=== PATIENT | female | born 1930 | race Caucasian/White ===

== ENCOUNTER 2017-05-18 18:16 | Observation (INO) | payer MEDICARE ==
[~2017-05-18] VITALS: Ht 172.7 cm; Wt 61.0 kg
[~2017-05-18 18:16] MED LIST: ASP81TEC PO; ATEN25TA PO; C250T PO; CHOL2000 PO; DIAZ5TAB3 PO; FENO54TA PO; HCT25T PO; HYDR-3812 PO; IBUP-1779 PO; MULT-1029 PO; NITR0.3T6 SL; NITROFURANTOIN PO; OLME40TA12 PO; OMG1KC PO; SIMV40TA4 PO
[2017-05-18] MEDS ORDERED: fentaNYL INJECTION 100 MCG/2 ML AMP IVP STA (18:26)
[2017-05-18] MEDS ORDERED: ATENOLOL 50 MG (TENORMIN) TAB PO ONE ×2 (18:30→18:45)
[2017-05-18 18:44] LABS: BASOPHILS % (AUTO) 1 % (0-10); EOSINOPHILS # (AUTO) 0.3 10^3/uL (0.0-0.3); EOSINOPHILS % (AUTO) 4 % (0-10); LYMPHOCYTES # (AUTO) 2.7 X 10^3 (1.0-4.0); LYMPHOCYTES % (AUTO) 35 % (12-44); MEAN CORPUSCULAR HEMOGLOBIN 30 PG (25-34); MEAN CORPUSCULAR HGB CONC 33 G/DL (32-36); MEAN CORPUSCULAR VOLUME 91 FL (80-99); MEAN PLATELET VOLUME 9.2 FL (7.4-10.4); MONOCYTES # (AUTO) 0.7 X 10^3 (0.0-1.0); MONOCYTES % (AUTO) 9 % (0-12); NEUTROPHILS % (AUTO) 52 % (42-75); PLATELET COUNT 293 10^3/uL (130-400); RED BLOOD COUNT 4.37 10^6/uL (4.35-5.85); RED CELL DISTRIBUTION WIDTH 13.3 % (10.0-14.5); WHITE BLOOD COUNT 7.7 10^3/uL (4.3-11.0)
--- NOTE | 2017-05-18 18:47 | ED Fall/Injury ---
General Chief Complaint: Hip/Pelvic Problems Stated Complaint: R HIP PAIN Nursing Triage Note: PT HERE VIA EMS WITH C/O R HIP PAIN. PT REPORTS FALLING SEVERAL TIMES OVER THE PAST WEEK. PT REPORTS BENDING DOWN TO ADJUST HER TV ANTENNA AND HER HIP GIVING OUT CAUSING HER INCREASED PAIN. Source: patient Exam Limitations: no limitations History of Present Illness Time seen by provider: 18:16 Initial Comments 87-year-old female patient presents to the emergency department via EMS with complaints of right hip pain. Reports falling 2-3 times over the last couple of days. Initially states she has fallen several times over the last week. Denies hitting her head or loss of consciousness. Denies neck or back pain. Has had previous hip replacements bilaterally. Patient states she fell yesterday while she was trying to bend down and adjust her TV antenna. Reports right hip giving out and causing her increased pain. Patient states she did not take her atenolol today. Location Injury Occurred: home Injuries/Pain Location: lower extremity (rt hip) Context: other (rt hip "gave out".) Loss of Consciousness: no loss of consciousness Modifying Factors: Improves With Immobilization, Worse With Movement Allergies and Home Medications Allergies Coded Allergies: codeine (Verified Allergy, Unknown, 03/03/06) Home Medications Ascorbic Acid 250 Mg Tab, 500 MG PO DAILY, (Reported) Aspirin 81 Mg Tabec, 81 MG PO DAILY, (Reported) Cholecalciferol 2,000 Unit Capsule, 2,000 UNIT PO DAILY, (Reported) Fenofibrate 54 Mg Tablet, 54 MG PO DAILY, (Reported) Hydrochlorothiazide 25 Mg Tab, 25 MG PO DAILY, (Reported) Hydrocodone/Acetaminophen 1 Each Tablet, 0.5-1 EACH PO Q4H PRN for PAIN, #14 Ref 0 Prescribed by: AYLA ROWLAND on 09/02/15 1603 Ibuprofen 400 Mg Tablet, 400 MG PO Q6H PRN for PAIN, #20 Ref 0 Prescribed by: AYLA ROWLAND on 09/02/15 1603 Mu-Vits-Min Th/Lycopene/Lutein 1 Each Tablet, 1 EACH PO, (Reported) Nitroglycerin 0.3 Mg Tab.subl, 0.4 MG SL, (Reported) Olmesartan Medoxomil 40 Mg Tablet, 40 MG PO DAILY, (Reported) [place] 3 Polyunsat Fatty Acids 1,000 Mg Cap, 1,000 MG PO BID, (Reported) Simvastatin 40 Mg Tablet, 40 MG PO DAILY, (Reported) Constitutional: no symptoms reported Eyes: No Symptoms Reported Ears, Nose, Mouth, Throat: no symptoms reported Respiratory: No cough, No short of breath Cardiovascular: No chest pain, No palpitations, No syncope Gastrointestinal: No abdominal pain, No constipation, No diarrhea, No nausea, No vomiting Genitourinary: no symptoms reported Musculoskeletal: see HPI, No back pain, joint pain, No neck pain Skin: no symptoms reported Psychiatric/Neurological: Denies Headache, Denies Numbness, Denies Paresthesia , Denies Seizure, Denies Tingling, Denies Weakness All Other Systems Reviewed Negative Unless Noted: Yes (Negative excepted noted.) Past Palrihl-Gpfaor-Beyycc Hx Patient Social History Recent Foreign Travel: No Contact w/Someone Who Travel: No Recent Infectious Disease Expo: No Immunizations Up To Date Date of Pneumonia Vaccine: May 02, 2010 Date of Influenza Vaccine: Aug 16, 2015 Seasonal Allergies Seasonal Allergies: No Surgeries History of Surgeries: Yes Surgeries: Appendectomy, Bladder Surgery, Gallbladder, Joint Replacement, Orthopedic Respiratory History of Respiratory Disorde: No Cardiovascular History of Cardiac Disorders: Yes Cardiac Disorders: High Cholesterol, Hypertension, Peripheral Vascular Neurological History of Neurological Disord: No Reproductive System Hx Reproductive Disorders: No Sexually Transmitted Disease: No HIV/AIDS: No 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 Gastrointestinal History of Gastrointestinal Di: No Musculoskeletal History of Musculoskeletal Dis: No Endocrine History of Endocrine Disorders: No Cancer History of Cancer: No Psychosocial History of Psychiatric Problem: No Reviewed Nursing Assessment Reviewed/Agree w Nursing PMH: Yes Family Medical History Significant Family History: No Pertinent Family Hx Physical Exam Vital Signs Vital Sign - Last 12Hours 05/18/17 18:16 Temp 97.8 Pulse 97 Resp 18 B/P (MAP) 240/101 Pulse Ox 99 O2 Delivery Room Air Capillary Refill : Less Than 3 Seconds General Appearance: WD/WN, no apparent distress HEENT: PERRL/EOMI, normal ENT inspection, TMs normal, pharynx normal Neck: non-tender, full range of motion, supple, normal inspection Cardiovascular: normal peripheral pulses, regular rate, rhythm, no edema, no murmur Respiratory: chest non-tender, lungs clear, normal breath sounds, no respiratory distress, no accessory muscle use Peripheral Pulses: 2+ Dorsalis Pedis (R), 2+ Left Dors-Pedis (L), 2+ Radial Pulses (R), 2+ Radial Pulses (L) Gastrointestinal: normal bowel sounds, non tender, soft, no organomegaly, No distended Back: normal inspection, no vertebral tenderness Extremities: no pedal edema, normal capillary refill, pelvis stable, other (rt lateral and posterior hip TTP. RLE shortened without rotation or obvious deformity. decreased ROM noted. Left hip nontender. ) Neurologic/Psychiatric: parlor chaperone II-XII nml as tested, no motor/sensory deficits, alert, normal mood/affect Skin: normal color, warm/dry Priscilla Coma Score Best Eye Response: (4) Open Spontaneously Best Verbal Response: (5) Oriented Best Motor Response: (6) Obeys Commands Priscilla Total: 15 Progress/Results/Core Measures Results/Orders Lab Results Laboratory Tests Test 05/18/17 18:36 Range/Units White Blood Count 7.7 4.3-11.0 10^3/uL Red Blood Count 4.37 4.35-5.85 10^6/uL Hemoglobin 13.2 11.5-16.0 G/DL Hematocrit 40 35-52 % Mean Corpuscular Volume 91 80-99 FL Mean Corpuscular Hemoglobin 30 25-34 PG Mean Corpuscular Hemoglobin Concent 33 32-36 G/DL Red Cell Distribution Width 13.3 10.0-14.5 % Platelet Count 293 130-400 10^3/uL Mean Platelet Volume 9.2 7.4-10.4 FL Neutrophils (%) (Auto) 52 42-75 % Lymphocytes (%) (Auto) 35 12-44 % Monocytes (%) (Auto) 9 0-12 % Eosinophils (%) (Auto) 4 0-10 % Basophils (%) (Auto) 1 0-10 % Neutrophils # (Auto) 4.0 1.8-7.8 X 10^3 Lymphocytes # (Auto) 2.7 1.0-4.0 X 10^3 Monocytes # (Auto) 0.7 0.0-1.0 X 10^3 Eosinophils # (Auto) 0.3 0.0-0.3 10^3/uL Basophils # (Auto) 0.0 0.0-0.1 10^3/uL Sodium Level 141 135-145 MMOL/L Potassium Level 3.6 3.6-5.0 MMOL/L Chloride Level 106 98-107 MMOL/L Carbon Dioxide Level 23 21-32 MMOL/L Anion Gap 12 5-14 MMOL/L Blood Urea Nitrogen 18 7-18 MG/DL Creatinine 0.93 0.60-1.30 MG/DL Estimat Glomerular Filtration Rate 57 BUN/Creatinine Ratio 19 Glucose Level 114 H 70-105 MG/DL Calcium Level 9.5 8.5-10.1 MG/DL Total Bilirubin 0.4 0.1-1.0 MG/DL Aspartate Amino Transf (AST/SGOT) 18 5-34 U/L Alanine Aminotransferase (ALT/SGPT) 11 0-55 U/L Alkaline Phosphatase 45 40-136 U/L Total Protein 6.6 6.4-8.2 GM/DL Albumin 4.0 3.2-4.5 GM/DL My Orders Orders - AYLA ROWLAND PA Cbc With Automated Diff (05/18/17 18:26) Comprehensive Metabolic Panel (05/18/17 18:26) Saline Lock/Iv-Start (05/18/17 18:26) Chest 1 View, Ap/Pa Only (05/18/17 18:26) Ct Head Wo (05/18/17 18:26) Fentanyl Injection (Sublimaze Injection (05/18/17 18:26) Atenolol Tablet (Tenormin Tablet) (05/18/17 18:30) Pelvis With Right Hip 2-3views (05/18/17 18:26) Atenolol Tablet (Tenormin Tablet) (05/18/17 18:45) Rx-Hydrocodone/Apap 5-325 Mg (Rx-Vicodin (05/18/17 20:00) Medications Given in ED Current Medications Medications Dose Ordered Sig/Maggie Route Start Time Stop Time Status Last Admin Dose Admin Atenolol 50 mg ONCE ONCE PO 05/18/17 18:45 05/18/17 18:46 DC 05/18/17 19:47 50 MG Vital Signs/I&O Vital Sign - Last 12Hours 05/18/17 18:16 Temp 97.8 Pulse 97 Resp 18 B/P (MAP) 240/101 Pulse Ox 99 O2 Delivery Room Air Blood Pressure Mean: 147 Diagnostic Imaging Diagonstic Imaging: CT Plain Films/CT/US/NM/MRI: head Comments FINDINGS: There are moderate advanced age-related cerebral volume loss and chronic small vessel ischemic changes. There is no midline shift or mass effect. There is no focus of acute ischemia or hemorrhage. Paranasal sinuses and mastoids are clear. There is no skull fracture. IMPRESSION: No acute intracranial abnormality. Dictated on workstation # [id number] Reviewed: Reviewed by Me (radiology report reviewed by me) Diagonstic Imaging: Xray Plain Films/CT/US/NM/MRI: chest Comments FINDINGS: Single view of the chest demonstrates minimal cardiac enlargement. Lungs are clear. There is no pneumothorax. Osseous structures are age- appropriate. IMPRESSION: Cardiac enlargement without pulmonary edema or infiltrate Dictated by: Dictated on workstation # [id number] Reviewed: Reviewed by Me (radiology report reviewed by me) Diagonstic Imaging: Xray Plain Films/CT/US/NM/MRI: pelvis, hip Comments FINDINGS: Single view of the pelvis and two views of the right hip demonstrate well-seated bilateral hip arthroplasties. There is no fracture or dislocation. No hardware loosening seen. The SI joints and symphysis are symmetric. IMPRESSION: No fracture or dislocation Dictated on workstation # [id number] Reviewed: Reviewed by Me (radiology report reviewed by me) Departure Communication (Admissions) Time/Spoke to Admitting Phy: 21:19 Communication pavel Progress Notes Patient seen and evaluated. CT scan of the head, x-ray of the pelvis and right hip, and x-ray of the chest obtained. No acute findings by radiograph were noted. Initially plan for discharge to home with baclofen and hydrocodone prescriptions; however, patient was unable to ambulate. Patient lives at home alone and does not have any family members in the [place] area to assist her. Patient has also been noted to have several falls over the last 2-3 days. Patient case discussed with Dr. Em, he graciously accepts patient to his internal medicine service for pain control and inpatient rehabilitation consult in a.m. Plan for admission discussed with the patient. Patient verbalizes understanding and wishes to proceed with treatment plan. Plan for admission discussed with Dr. Yip, he agrees with the plan of care. Impression Impression: Primary Impression: Intractable pain Additional Impressions: Contusion of right hip Qualified Codes: S70.01XA - Contusion of right hip, initial encounter Hypertension Qualified Codes: I10 - Essential (primary) hypertension Disposition: ADMITTED INPATIENT Condition: Stable Admissions Decision to Admit Reason: Admit from ER (General) Decision to Admit/Date: May 18, 2017 Time/Decision to Admit Time: 21:16 Departure-Patient Inst. Decision time for Depature: 19:11 Referrals: ARIAN LOCKHART MD (PCP/Family) Primary Care Physician Add. Discharge Instructions: All discharge instructions reviewed with patient and/or family. Voiced understanding. AYLA ROWLAND May 18, 2017 18:47
[2017-05-18 19:00] LABS: BILIRUBIN,TOTAL 0.4 MG/DL (0.1-1.0); CALCIUM 9.5 MG/DL (8.5-10.1); CREATININE SERUM 0.93 MG/DL (0.60-1.30); POTASSIUM 3.6 MMOL/L (3.6-5.0); TOTAL PROTEIN 6.6 GM/DL (6.4-8.2)
--- NOTE | 2017-05-18 19:02 | Diagnostic Imaging Report ---
INDICATION: Fall with chest pain COMPARISON: None FINDINGS: Single view of the chest demonstrates minimal cardiac enlargement. Lungs are clear. There is no pneumothorax. Osseous structures are age-appropriate. IMPRESSION: Cardiac enlargement without pulmonary edema or infiltrate Dictated by: Dictated on workstation # [id number]
--- NOTE | 2017-05-18 19:04 | Diagnostic Imaging Report ---
INDICATION: Fall, hip pain COMPARISON: None FINDINGS: Single view of the pelvis and two views of the right hip demonstrate well-seated bilateral hip arthroplasties. There is no fracture or dislocation. No hardware loosening seen. The SI joints and symphysis are symmetric. IMPRESSION: No fracture or dislocation Dictated by: Dictated on workstation # [id number]
--- NOTE | 2017-05-18 19:04 | Diagnostic Imaging Report ---
PROCEDURE: CT head without contrast. TECHNIQUE: Multiple contiguous axial images were obtained through the brain without the use of intravenous contrast. INDICATION: Fall, headache. COMPARISON: None. FINDINGS: There are moderate advanced age-related cerebral volume loss and chronic small vessel ischemic changes. There is no midline shift or mass effect. There is no focus of acute ischemia or hemorrhage. Paranasal sinuses and mastoids are clear. There is no skull fracture. IMPRESSION: No acute intracranial abnormality. Dictated by: Dictated on workstation # [id number]
[2017-05-18] MEDS ORDERED: BACL10TA PO (19:53)
[2017-05-18] MEDS ORDERED: HYDR-3812 PO (19:53)
[2017-05-18] MEDS ORDERED: RX-HYDROCODONE/APAP 5/325 MG #4 TAB PK PO PRN (20:00)
[2017-05-18] MEDS ORDERED: fentaNYL INJECTION 100 MCG/2 ML AMP IV PRN (22:30)
[2017-05-18] MEDS ORDERED: ONDANSETRON 4 MG/2 ML (SDV) Z0FRAN IV PRN (22:30)
[2017-05-18] MEDS ORDERED: KETOROLAC 15 MG/ML VIAL IV PRN (22:30)
[2017-05-18] MEDS ORDERED: HYDROcodone/APAP 5 MG/325 MG (LORTAB) TAB PO PRN (22:30)
[2017-05-19 00:50] VITALS: BP_SYST 142; BP_SYST 94; BP_DIAS 59; BP_DIAS 82
[2017-05-19 04:25] VITALS: BP 155/53
[2017-05-19 06:08] LABS: BASOPHILS % (AUTO) 1 % (0-10); EOSINOPHILS # (AUTO) 0.3 10^3/uL (0.0-0.3); EOSINOPHILS % (AUTO) 4 % (0-10); LYMPHOCYTES # (AUTO) 2.3 X 10^3 (1.0-4.0); LYMPHOCYTES % (AUTO) 33 % (12-44); MEAN CORPUSCULAR HEMOGLOBIN 30 PG (25-34); MEAN CORPUSCULAR HGB CONC 33 G/DL (32-36); MEAN CORPUSCULAR VOLUME 92 FL (80-99); MEAN PLATELET VOLUME 9.4 FL (7.4-10.4); MONOCYTES # (AUTO) 0.6 X 10^3 (0.0-1.0); MONOCYTES % (AUTO) 8 % (0-12); NEUTROPHILS # (AUTO) 3.8 X 10^3 (1.8-7.8); NEUTROPHILS % (AUTO) 54 % (42-75); PLATELET COUNT 283 10^3/uL (130-400); RED BLOOD COUNT 4.44 10^6/uL (4.35-5.85); RED CELL DISTRIBUTION WIDTH 13.5 % (10.0-14.5)
[2017-05-19 06:28] LABS: ALBUMIN 3.9 GM/DL (3.2-4.5); BILIRUBIN,TOTAL 0.7 MG/DL (0.1-1.0); CALCIUM 9.3 MG/DL (8.5-10.1); CREATININE SERUM 0.92 MG/DL (0.60-1.30); POTASSIUM 3.6 MMOL/L (3.6-5.0); TOTAL PROTEIN 6.5 GM/DL (6.4-8.2)
[2017-05-19 08:45] VITALS: BP 162/53
[2017-05-19] MEDS ORDERED: CHOL20002 PO (09:05)
[2017-05-19] MEDS ORDERED: OMG1KC PO (09:05)
[2017-05-19] MEDS ORDERED: ASPI-983 PO (09:05)
[2017-05-19] MEDS ORDERED: MULT-1029 PO (09:05)
[2017-05-19] MEDS ORDERED: FENO54TA PO (09:06)
[2017-05-19] MEDS ORDERED: NITR0.4T39 SL (09:06)
[2017-05-19] MEDS ORDERED: IBUP-30 PO (09:06)
[2017-05-19] MEDS ORDERED: HYDR25TA4 PO (09:06)
[2017-05-19] MEDS ORDERED: ATEN100T PO (09:06)
[2017-05-19] MEDS ORDERED: ASCO500T7 PO (09:06)
[2017-05-19] MEDS ORDERED: SIMV40TA4 PO (09:06)
--- NOTE | 2017-05-19 10:56 | Short Stay Summary-Hospitalist ---
HPI History of Present Illness: HPI/Chief Complaint CC: Hip Pain HPI: Pt is an 87yoCF who presented to the ER with CC of hip pain following a fall. She was bending over to adjust her TV antenna so it wouldn't get hit by lightening and lost her balance and fell over. She was unable to get up and is unsure how long she was down. She eventually crawled over the a chair and got herself to a phone to call a friend to help her. When she came to the ER here she had a CT head and XR of her hips both of which where unremarkable. She continued to have pain though so was admitted for intractable pain. Source: patient, RN/MD Exam Limitations: no limitations Date Seen 05/19/17 Time Seen by Provider: 10:30 Attending Physician Clint Em MD PCP Wayne Mckay MD Referring Physician Date of Admission May 18, 2017 at 21:24 Home Medications & Allergies Home Medications Reviewed patient Home Medication Reconciliation Form Allergies Allergies Coded Allergies codeine (Verified Allergy, Unknown, 03/03/06) Past Aexoorq-Xfapjc-Qijzmd Hx Patient Social History Employed/Student: retired Alcohol Use: Denies Use Recreational Drug Use: No Smoking Status: Former Smoker Physical Abuse Screen: No Sexual Abuse: No Recent Foreign Travel: No Contact w/other who traveled: No Recent Infectious Disease Expo: No Immunizations Up To Date Date of Pneumonia Vaccine: May 02, 2010 Date of Influenza Vaccine: Aug 16, 2015 Seasonal Allergies Seasonal Allergies: No Surgeries Yes (hysterectomy) Appendectomy, Bladder Surgery, Gallbladder, Joint Replacement, Orthopedic Respiratory No Cardiovascular Yes High Cholesterol, Hypertension, Peripheral Vascular Neurological No Reproductive System Hx Reproductive Disorders: No Sexually Transmitted Disease: No HIV/AIDS: No MANUFACTURING GROUP LEADER History: Hysterectomy Genitourinary Yes Kidney Infection Gastrointestinal Yes (constipation) Musculoskeletal No Endocrine History of Endocrine Disorders: No HEENT History of HEENT Disorders: Yes HEENT Disorders: Glaucoma Cancer No Psychosocial History of Psychiatric Problem: Yes Behavioral Health Disorders: Depression Integumentary History of Skin or Integumenta: No Blood Transfusions History of Blood Disorders: No Adverse Reaction to a Blood Tr: No Reviewed Nursing Assessment Reviewed/Agree w Nursing PMH: Yes Family Medical History Significant Family History: No Pertinent Family Hx Review of Systems Constitutional: No diaphoresis, No fever, No weakness EENTM: No mouth pain, No nose congestion, No throat pain Respiratory: No cough, No dyspnea on exertion, No short of breath Cardiovascular: No chest pain, No palpitations Gastrointestinal: No abdominal pain, No constipation, No diarrhea, No nausea, No vomiting Genitourinary: No dysuria, No frequency Musculoskeletal: joint pain Skin: no symptoms reported Psychiatric/Neurological: No Symptoms Reported Physical Exam Physical Exam Vital Signs Vital Sign - Last 12Hours 05/18/17 18:16 Temp 97.8 Pulse 97 Resp 18 B/P (MAP) 240/101 Pulse Ox 99 O2 Delivery Room Air Capillary Refill : Less Than 3 Seconds General Appearance: No Apparent Distress, WD/WN HEENT: PERRL/EOMI, No Scleral Icterus (L), No Scleral Icterus (R) Respiratory: Lungs Clear, Normal Breath Sounds, No Accessory Muscle Use Cardiovascular: Regular Rate, Rhythm, No Edema, No JVD, No Murmur Gastrointestinal: Normal Bowel Sounds, Non Tender, Soft Extremity: Normal Capillary Refill, No Calf Tenderness, No Pedal Edema Neurologic/Psychiatric: Alert, Oriented x3, No Motor/Sensory Deficits Skin: Normal Color, Warm/Dry Results Results/Procedures Lab Laboratory Tests 05/18/17 18:36 05/19/17 05:37 Radiology PELVIS WITH RIGHT HIP 2-3VIEWS IMPRESSION: No fracture or dislocation CT head without contrast. IMPRESSION: No acute intracranial abnormality. Short Stay Diagnosis Discharge Diagnosis-Short Stay Admission Diagnosis Intractable Hip Pain Final Discharge Diagnosis Intractable Hip Pain Conclusion Plan See Problems Diagnosis/Problems Diagnosis/Problems (1) Intractable pain Status: Acute Assessment & Plan: Originally necessitated IV pain medicine Pain improved overnight and has not needed any oral pain meds today Will DC with Tylenol (2) Fall in home Status: Acute Assessment & Plan: Reports falling more recently but has not been using any assistive devices PT evaluated this AM, patient did well with walker even with stairs Pt reports having a cane, walker, wheelchair, and toilet riser at home for assistance if needed Qualifiers: Qualified Codes: W19.XXXA - Unspecified fall, initial encounter; Y92.099 - Unspecified place in other non-institutional residence as the place of occurrence of the external cause (3) Hypertension Status: Chronic Assessment & Plan: Very elevated on arrival, likely due to pain Improved, near goal for age Qualifiers: Qualified Codes: I10 - Essential (primary) hypertension Clinical Quality Measures DVT/VTE Risk/Contraindication: Risk Factor Score Per Nursin RFS Level Per Nursing on Admit: 4+=Very High KIERA WADR MD May 19, 2017 10:56
[2017-05-19] MEDS ORDERED: ACET325T38 PO (11:24)
--- NOTE | 2017-05-19 11:59 | Physical Therapy Evaluation ---
PT Evaluation-General Medical Diagnosis Admission Date May 18, 2017 at 21:24 Medical Diagnosis: right hip pain Onset Date: May 18, 2017 Therapy Diagnosis Therapy Diagnosis: debility Height/Weight Height (Feet): 5 Height (Inches): 8.00 Weight (Pounds): 134 Weight (Ounces): 6.4 Precautions Precautions/Isolations: Fall Prevention, Standard Precautions Referral Physician: Cheri Reason for Referral: Evaluation/Treatment Medical History Pertinent Medical History: HTN, PVD Current History multiple falls this week while performing activities (adjusting antenna, bending over) Reviewed History: Yes Social History Home: Single Level Current Living Status: Alone Entry Into Home: Stairs With Railing PT Steps Into Home: 5 PT Steps Inside Home: 8 Prior/Core FIM Prior Level of Function Functional [place] Measure 0=Not Assessed/NA 4=Minimal Assistance 1=Total Assistance 5=Supervision or Setup 2=Maximal Assistance 6=Modified [place] 3=Moderate Assistance 7=Complete [place] Bed Mobility: 7 Transfers (B,C,W/C) (FIM): 7 Gait: 7 PT Evaluation-Current Subjective Patient agrees to PT and states she wants to go home. Pain Numeric Pain Scale: 5-Moderate Pain Location: Right Location Body Site: Hip Pain Description: Acute, Sharp Objective Patient Orientation: Normal For Age Problem Solving: Good ROM/Strength ROM Lower Extremities bilateral LE WNL Strenght Lower Extremities right knee flexion/extension 4/5; hip flexion 4/5; ankle dorsi/plantarflexion 4/ 5 left knee flexion/extension 4/5; hip flexion 4/5; ankle dorsi/plantarflexion 4/5 Integumentary/Posture Integumentary refer to nursing notes Bowel Incontinence: No Bladder Incontinence: No Posture WNL Neuromuscular (Tone, Coordination, Reflexes) grossly intact Sensory Vision: Functional Hearing: Functional Sensation Right Lower Extremit: Intact Sensation Left Lower Extremity: Intact Transfers Functional [place] Measure 0=Not Assessed/NA 4=Minimal Assistance 1=Total Assistance 5=Supervision or Setup 2=Maximal Assistance 6=Modified [place] 3=Moderate Assistance 7=Complete [place] Transfers (B, C, W/C) (FIM): 7 Scootin Rollin Supine to/from Sit: 7 Sit to/from Stand: 7 Gait Mode of Locomotion: Walk Anticipated Mode of Locomotion: Walk Gait (FIM): 6 Distance (FIM): 3=150 ft Distance: 250' x 2 Gait Level of Assist: 6 Gait Assistive Device: FWW Comments/Gait Description safe and functional with FWW Stairs Stairs (FIM): 5 #of Steps: 5 Level of Assist: 5 bilateral hand rails/reciprocal pattern Balance Sitting Static: Normal Sitting Dynamic: Normal Standing Static: Normal Standing Dynamic: Normal Assessment/Needs 87 y.o. female, is currently at independent LOF with bed mobility and transfers and modified independent with ambulation with FWW. Patient reports she has established FWW and desires to return to home on this date. Dr. Alonzo has been notified. Rehab Potential: Good PT Plan Treatment/Plan Treatment Plan: Discontinue PT, goals met Treatment Plan: Education, Other (evaluation) Treatment Duration: May 19, 2017 Frequency: 1 time per week Estimated Hrs Per Day: .5 hour per day Patient and/or Family Agrees t: Yes Safety Risks/Education Patient Education: Steps, Safety Issues Teaching Recipient: Patient Teaching Methods: Demonstration, Discussion Response to Teaching: Verbalize Understanding, Return Demonstration Discharge Recommendations Therapy D/C Recommendations: Home Independently (has a girlfriend who assist PRN) Time/GCodes Time In: 1100 Time Out: 1123 Total Billed Treatment Time: 23 Total Billed Treatment 1 visit EVLowC 23 min G Codes Necessary: Yes PT/OT Therapy GCodes Therapy Functional Limitation: Physical Therapy Test(s)/Tool used to determine: Level of Assistance Scale Functional Limitation-Current Charge Code: MOBCUR Modifier: CI Functional Limitation-Goal Charge Code: MOBGOAL Modifier: CI Functional Limitation-D/C Charge Codes: MOBDC Modifier: CI ABDULAZIZ CAPPS PT May 19, 2017 11:59
--- NOTE | 2017-05-19 13:14 | Occ Therapy Progress Note ---
Therapy Progress Note 1314 Pt not seen for OT evaluation as she is being discharged from hospital at this time. ZAFAR BOYER OT May 19, 2017 13:14
[2017-05-19 13:43] VITALS: BP 128/72
[2017-05-19 14:14] VITALS: BP 128/72
== END 2017-05-19 11:21 | disposition home or self-care (01) ==
LOC: EDUNIT# 18:16 → ER 18:17 → 4TH 21:24 → UNDOADMOB 21:24 → 4TH 21:50 → UNDODISOB 05-19 13:20 → 4TH 05-19 14:09
PROVIDERS: ADMIT Internal Medicine; ATTEND Internal Medicine
DX: S70.01XA Contusion of right hip, initial encounter (principal); I10 Essential (primary) hypertension; I51.7 Cardiomegaly; Z79.82 Long term (current) use of aspirin; Z79.899 Other long term (current) drug therapy; Z96.643 Presence of artificial hip joint, bilateral; W01.0XXA Fall on same level from slipping, tripping and stumbling without subsequent striking against object, initial encounter; Y92.009 Unspecified place in unspecified non-institutional (private) residence as the place of occurrence of the external cause; Y99.8 Other external cause status
CPT/HCPCS: 36415; 70450; 71010; 80053; 85025; 99284; G0378